=== PATIENT | male | born 1955 | race Two or more races ===

== ENCOUNTER 2024-06-22 23:06 | Inpatient (IN) | payer MEDICARE, MEDICAID ==
[~2024-06-22] VITALS: Ht 170.2 cm; Wt 82.5 kg
[2024-06-22 23:31] LABS: Basophils # (auto) 0 10 ^3/uL (0-0.2); Basophils % (auto) 0.2 % (0.0-2.0); Eosinophils # (auto) 0.4 10 ^3/uL (0-0.8); Eosinophils % (auto) 6.1 % (0.0-7.0); Hematocrit 47.9 % (41.0-53.0); Hemoglobin 16.5 g/dL (13.5-17.5); Lymphocytes # (auto) 1.8 10 ^3/uL (0.4-5.4); Mean Corpuscular Hemoglobin 30.9 pg (28.0-32.0); Mean Corpuscular Hgb Conc. 34.5 g/dL (32.0-36.0); Mean Corpuscular Volume 89.6 fL (80.0-100.0); Monocytes # (auto) 0.5 10 ^3/uL (0-1.3); Monocytes % (auto) 8.3 % (0.0-12.0); Neutrophils # (auto) 3.7 10 ^3/uL (1.6-8.6); Neutrophils % (auto) 57.4 % (37.0-80.0); Nucleated Red Blood Cells % 0.3 %; Platelet Count (auto) 230 10^3/uL (140-450); Red Blood Cells 5.35 10^6/uL (4.5-5.90); Red Cell Distribution Width 13.7 % (11.8-14.3); White Blood Cell 6.5 10^3/uL (4.4-10.8)
[2024-06-22 23:53] LABS: Alanine Aminotransferase 35 U/L (7-40); Albumin 4.6 g/dL (3.2-4.8); Alkaline Phosphatase 109 U/L (46-116); Anion Gap 8 (5-15); Aspartate Aminotransferase 22 U/L (13-40); BUN/Creatinine Ratio 9.8 (10.0-20.0); Bilirubin, Total 0.7 mg/dL (0.2-1.0); Blood Urea Nitrogen 9 mg/dL (9-23); Calcium 9.5 mg/dL (8.7-10.4); Carbon Dioxide 23 mmol/L (20-31); Chloride 106 mmol/L (98-107); Glucose 174 mg/dL (74-106); Lactic Acid w/Reflex 2.1 mmol/L (0.4-2.0); Potassium 3.6 mmol/L (3.5-5.1); Sodium 137 mmol/L (136-145); Total Protein 7.2 g/dL (5.7-8.2)
[2024-06-23] VITALS (12 sets, daily range): BP systolic 112–149; BP diastolic 66–86; PULSE 64–82; RESP 12–20; TEMP 97.8–98.1; O2SAT 90–97
[2024-06-23] MEDS ORDERED: TACR0.5C3 PO (01:25)
[2024-06-23] MEDS ORDERED: LOSA-535 PO (01:25)
[2024-06-23 01:39] LABS: INR 1.02 (0.9-1.15); Partial Thromboplastin Time 27.1 SEC (24.5-34.5); Prothrombin Time 10.8 sec (9.3-11.8)
[2024-06-23] MEDS: HEPARIN SODIUM (PORCINE) 5000 UNITS/ML 1ML VIAL IV ONE (02:12)
[2024-06-23] MEDS: HEPARIN DRIP/D5W 100UNITS/ML 250 ML IV SCH ×2 (02:22→20:45)
[2024-06-23 03:12] LABS: Urine Bacteria None Seen /hpf (None Seen); Urine WBC None Seen /hpf (0 - 3)
[2024-06-23 03:23] LABS: Urine Blood Negative /uL (Negative); Urine Clarity Clear (Clear); Urine Color Light-Yellow (Yellow); Urine Protein, UAD Negative (Negative); Urine Specific Gravity 1.007 (1.001-1.035); Urine Urobilinogen Normal (Negative)
[2024-06-23] MEDS ORDERED: ONDANSETRON HCL 4 MG/2 ML VIAL IV PRN (07:15)
[2024-06-23] MEDS ORDERED: DOCUSATE SOD 100 MG CAP PO PRN (07:15)
[2024-06-23] MEDS ORDERED: hydrALAZINE HCL 20 MG/ML VL IV PRN (07:15)
[2024-06-23] MEDS ORDERED: NITROGLYCERIN 0.4 MG SL TAB SL PRN (07:15)
[2024-06-23] MEDS ORDERED: IBUPROFEN 600 MG TAB PO PRN (07:15)
[2024-06-23] MEDS ORDERED: MORPHINE SULFATE INJ 2 MG/ml SYRG IV PRN ×2 (07:15)
[2024-06-23] MEDS: SODIUM CHLORIDE 0.9% 1,000 ML IV SCH (08:06)
[2024-06-23 08:18] LABS: Basophils # (auto) 0 10 ^3/uL (0-0.2); Basophils % (auto) 0.3 % (0.0-2.0); Eosinophils # (auto) 0.3 10 ^3/uL (0-0.8); Eosinophils % (auto) 4.3 % (0.0-7.0); Hematocrit 47.4 % (41.0-53.0); Hemoglobin 16.4 g/dL (13.5-17.5); Lymphocytes # (auto) 1.5 10 ^3/uL (0.4-5.4); Lymphocytes % (auto) 23.3 % (10.0-50.0); Mean Corpuscular Hemoglobin 30.9 pg (28.0-32.0); Mean Corpuscular Hgb Conc. 34.5 g/dL (32.0-36.0); Mean Corpuscular Volume 89.7 fL (80.0-100.0); Monocytes # (auto) 0.5 10 ^3/uL (0-1.3); Neutrophils # (auto) 4.3 10 ^3/uL (1.6-8.6); Neutrophils % (auto) 65.1 % (37.0-80.0); Nucleated Red Blood Cells % 0.5 %; Platelet Count (auto) 212 10^3/uL (140-450); Red Blood Cells 5.29 10^6/uL (4.5-5.90); Red Cell Distribution Width 13.5 % (11.8-14.3); White Blood Cell 6.6 10^3/uL (4.4-10.8)
[2024-06-23 08:25] LABS: Chloride 111 mmol/L (98-107); Potassium 4.7 mmol/L (3.5-5.1); Sodium 139 mmol/L (136-145)
[2024-06-23 08:26] LABS: Anion Gap 4 (5-15); Calcium 9.6 mg/dL (8.7-10.4); Carbon Dioxide 24 mmol/L (20-31)
[2024-06-23 08:31] LABS: BUN/Creatinine Ratio 7.7 (10.0-20.0); Blood Urea Nitrogen 7 mg/dL (9-23); Glucose 137 mg/dL (74-106)
[2024-06-23 08:32] LABS: INR 1.04 (0.9-1.15); Partial Thromboplastin Time 47.5 SEC (24.5-34.5)
[2024-06-23] MEDS: IODIXANOL 320MG/ML 100ML BTL IV ONE (09:42)
[2024-06-23] MEDS: MIDAZOLAM HCL 2MG/2ML 2ml VIAL (1mg/ml) ONE (09:50)
[2024-06-23] MEDS: VERAPAMIL 2.5MG/ML INJ 2ML VIAL IV ONE (09:50)
[2024-06-23] MEDS: ANGIOMAX 250 MG VIAL IV ONE (09:50)
[2024-06-23] MEDS: fentaNYL CITRATE 100 MCG/2 ML VL ONE (09:50)
[2024-06-23] MEDS: SODIUM CHL 0.9% 0 ML ONE (09:51)
[2024-06-23] MEDS: LIDOCAINE 2%HCL (LOCAL ANESTH.) INJ 20ML MDV ONE (09:51)
[2024-06-23] MEDS: LOSARTAN POTASSIUM 25 MG TAB PO SCH (10:00)
[2024-06-23] MEDS: TACROLIMUS 0.5 MG CAP PO SCH (10:00)
[2024-06-23 10:09] LABS: Magnesium 2.1 mg/dL (1.6-2.6)
[2024-06-23] MEDS ORDERED: HEPARIN DRIP/D5W 100UNITS/ML 250 ML IV SCH ×2 (10:30→20:30)
[2024-06-23] MEDS ORDERED: TACR1CAP4 PO (11:59)
[2024-06-23] MEDS ORDERED: MYCO180T PO (11:59)
[2024-06-23] MEDS: ASPirin 81 mg TAB PO SCH (12:19)
[2024-06-23] MEDS ORDERED: IODIXANOL 320MG/ML 100ML BTL IV ONE (15:21)
[2024-06-23] MEDS: METOPROLOL SUCCINATE XL 50 MG TAB PO SCH (16:01)
[2024-06-23] MEDS: TACROLIMUS 1 MG CAP PO SCH (17:46)
[2024-06-23] MEDS: MYCOPHENOLATE 180 MG PO SCH (18:00)
[2024-06-23] MEDS: INFLUENZA TRIVALENT 2024-2025 0.5 ML INJ IM ONE (18:00)
[2024-06-23] MEDS: PNEUMOCOCCAL VACC POLYS 25 MCG/0.5 ML VIAL IM ONE (18:00)
[2024-06-23 20:04] LABS: INR 1.02 (0.9-1.15); Partial Thromboplastin Time 37.6 SEC (24.5-34.5); Prothrombin Time 10.8 sec (9.3-11.8)
[2024-06-24] MEDS ORDERED: TACROLIMUS 0.5 MG CAP PO SCH (06:00)
== END 2024-06-23 20:14 | disposition short-term general hospital (02) | DRG 281 ==
LOC: ER 23:06 → EDBD 23:06 → TELE 06-23 07:08 → TELE-WESTW 06-23 11:33
PROVIDERS: ADMIT Nurse Practitioner Family; ATTEND Internal Medicine
PROC: 4A023N7 Measurement of Cardiac Sampling and Pressure, Left Heart, Percutaneous Approach (ICD-10-PCS; principal; 2024-06-23)
PROC: B211YZZ Fluoroscopy of Multiple Coronary Arteries using Other Contrast (ICD-10-PCS; 2024-06-23)
DX: I21.4 Non-ST elevation (NSTEMI) myocardial infarction (principal); Z94.4 Liver transplant status; I16.0 Hypertensive urgency; R73.9 Hyperglycemia, unspecified; R73.03 Prediabetes; I45.10 Unspecified right bundle-branch block; Z87.891 Personal history of nicotine dependence; Z85.05 Personal history of malignant neoplasm of liver
CPT/HCPCS: 36415; 71045; 80048; 80053; 80061; 81001; 83036; 83605; 83735; 83880; 84443; 84484; 85025; 85610; 85730; 86850; 86900; 86901; 93005; 93458; 99152; 99291; G0378; J2250; J7507; Q9967